=== PATIENT | female | born 2000 | race Hispanic/Latino ===

== ENCOUNTER 2018-07-31 01:35 | Emergency (ER) | payer MEDICAID, OTHER ==
[2018-07-31 02:10] LABS: BILIRUBIN,URINE Negative (NEGATIVE); COLOR,URINE Yellow (YELLOW); GLUCOSE, URINE (UA) Negative (NEGATIVE); KETONES,URINE Negative (NEGATIVE); LEUKOCYTE ESTERASE ,URINE Trace (NEGATIVE); NITRATE,URINE Negative (NEGATIVE); OCCULT BLOOD,URINE Negative (NEGATIVE); PH,URINE 7.5 (5.0-8.0); PROTEIN,URINE Negative (NEGATIVE)
[2018-07-31 02:11] LABS: APPEARANCE,URINE SLIGHTLY CLOUDY (CLEAR)
[2018-07-31 02:12] LABS: HCG,QUAL RESULT NEGATIVE (NEGATIVE)
[2018-07-31 02:24] LABS: AMORPHOUS SEDIMENT,UR Moderate /LPF (None Seen); BACTERIA,URINE Moderate /HPF (None Seen); RBC,URINE 0-1 /HPF (0-1)
[2018-07-31] MEDS ORDERED: ORPHENADRINE CITRATE 30 MG/ML ML ONE (02:57)
== END 2018-07-31 03:11 | disposition home or self-care (01) ==
LOC: EDH 01:35
DX: S46.812A Strain of other muscles, fascia and tendons at shoulder and upper arm level, left arm, initial encounter (principal); S80.01XA Contusion of right knee, initial encounter; S60.221A Contusion of right hand, initial encounter; V33 Occupant of three-wheeled motor vehicle injured in collision with car, pick-up truck or van; Y93.89 Activity, other specified; Y92.410 Unspecified street and highway as the place of occurrence of the external cause; Y99.8 Other external cause status
CPT/HCPCS: 81001; 81025; 96372; 99284; J2360

== ENCOUNTER 2023-05-23 08:54 | Emergency (ER) | payer MEDICAID ==
[~2023-05-23] VITALS: Ht 152.4 cm; Wt 107.5 kg
[2023-05-23 09:15] LABS: BASOPHILS # (AUTO) 0.04 K/uL (0.00-0.20); BASOPHILS % (AUTO) 0.4 % (0.0-5.0); EOSINOPHILS # (AUTO) 0.15 K/uL (0.00-0.70); EOSINOPHILS % (AUTO) 1.7 % (0.0-8.0); HEMATOCRIT 35.7 % (36-48); IMMATURE GRANULOCYTE ABSOLUTE 0.02 K/uL (0-1); LYMPHOCYTES % (AUTO) 22.2 % (21.0-51.0); MEAN CORPUSCULAR HEMOGLOBIN 29.7 pg (27.0-33.0); MEAN CORPUSCULAR HGB CONC 33.9 g/dL (32.0-36.0); MEAN CORPUSCULAR VOLUME 87.5 fL (79-99); MONOCYTES # (AUTO) 0.5 K/uL (0.1-1.0); MONOCYTES % (AUTO) 5.6 % (3.0-13.0); NEUTROPHILS # (AUTO) 6.2 K/uL (1.8-7.7); NEUTROPHILS % (AUTO) 69.9 % (40.0-77.0); PLATELET COUNT (AUTO) 230 K/uL (130-400); RED BLOOD CELL COUNT(AUTO) 4.08 MIL/uL (4.00-5.50); RED CELL DISTRIBUTION WIDTH 12.7 % (11.0-15.5); WHITE BLOOD COUNT (AUTO) 8.9 K/uL (4.8-10.8)
[2023-05-23 09:25] LABS: CREATININE 0.7 mg/dL (0.5-1.0); POTASSIUM 3.6 mmol/L (3.5-5.1)
[2023-05-23] MEDS: ONDANSETRON 4MG INJ IVP ONE (09:39)
[2023-05-23] MEDS: MAG/ALUM/SIMETH 30 ML UDCUP PO ONE (09:39)
[2023-05-23] MEDS: LACTATED RINGERS 1000ML 1,000 ML IV ONE (09:39)
[2023-05-23 09:50] LABS: ALBUMIN 3.4 g/dL (3.5-5.0); BILIRUBIN,TOTAL 0.3 mg/dL (0.2-1.0)
[2023-05-23 11:17] LABS: AMPHET/METH SCREEN,URINE NEGATIVE (NEGATIVE); BARBITURATE SCREEN, URINE NEGATIVE (NEGATIVE); BENZODIAZEPINES SCREEN,URINE NEGATIVE (NEGATIVE); CANNABINOID SCREEN,URINE NEGATIVE (NEGATIVE); COCAINE SCREEN,URINE NEGATIVE (NEGATIVE); OPIATE SCREEN,URINE NEGATIVE (NEGATIVE); PHENCYCLIDINE SCREEN,URINE NEGATIVE (NEGATIVE)
[2023-05-23] MEDS ORDERED: DOXY1TAB3 PO (12:00)
[2023-05-23 12:39] VITALS: BP 129/74; PULSE 74; RESP 16; O2SAT 99
== END 2023-05-23 12:46 | disposition home or self-care (01) ==
LOC: EDH 08:54
DX: O21.9 Vomiting of pregnancy, unspecified (principal); Z3A.16 16 weeks gestation of pregnancy
CPT/HCPCS: 99285; 96374; 96361; 76801; 80053; 80305; 84702; 83690; 85025; 81025; 36415; J2405

== ENCOUNTER 2023-05-27 23:48 | Emergency (ER) | payer MEDICAID ==
[~2023-05-27] VITALS: Ht 157.5 cm; Wt 83.9 kg
[~2023-05-27 23:48] MED LIST: DOXY1TAB3 PO
[2023-05-28 00:15] LABS: APPEARANCE,URINE TURBID (CLEAR); BILIRUBIN,URINE NEGATIVE (NEGATIVE); GLUCOSE, URINE (UA) NEGATIVE (NEGATIVE); KETONES,URINE NEGATIVE (NEGATIVE); LEUKOCYTE ESTERASE ,URINE 500 Leu/uL (NEGATIVE); NITRATE,URINE NEGATIVE (NEGATIVE); OCCULT BLOOD,URINE LARGE (NEGATIVE); PROTEIN,URINE 70 mg/dL (NEGATIVE); UROBILINOGEN,URINE 0.2 mg/dL (0.2-1.0)
[2023-05-28 00:19] LABS: ADD UA MICROSCOPIC YES; COLOR,URINE PINK (YELLOW)
[2023-05-28 00:27] VITALS: BP 112/64; PULSE 68; RESP 16; O2SAT 98
[2023-05-28] MEDS ORDERED: CEPHALEXIN 500 MG CAPSULE PO ONE (00:30)
[2023-05-28 00:34] LABS: BACTERIA,URINE RARE /HPF (None Seen); MUCUS,URINE RARE LPF (None Seen); RBC,URINE TNTC /HPF (0-1); SQUAMOUS EPITHELIAL CELL,UR MOD /HPF (0-2); WBC CLUMP RARE /HPF (0-1); WBC,URINE 26-50 /HPF (0-1)
[2023-05-28] MEDS ORDERED: MACR100 PO (00:36)
[2023-05-28 00:38] LABS: BASOPHILS # (AUTO) 0.04 K/uL (0.00-0.20); BASOPHILS % (AUTO) 0.5 % (0.0-5.0); EOSINOPHILS # (AUTO) 0.16 K/uL (0.00-0.70); EOSINOPHILS % (AUTO) 1.8 % (0.0-8.0); HEMATOCRIT 37.1 % (36-48); IMMATURE GRANULOCYTE ABSOLUTE 0.03 K/uL (0-1); LYMPHOCYTES # (AUTO) 2.4 K/uL (1.0-4.8); LYMPHOCYTES % (AUTO) 26.6 % (21.0-51.0); MEAN CORPUSCULAR HEMOGLOBIN 29.6 pg (27.0-33.0); MEAN CORPUSCULAR VOLUME 87.3 fL (79-99); MONOCYTES # (AUTO) 0.4 K/uL (0.1-1.0); MONOCYTES % (AUTO) 4.9 % (3.0-13.0); NEUTROPHILS # (AUTO) 5.8 K/uL (1.8-7.7); NEUTROPHILS % (AUTO) 65.9 % (40.0-77.0); PLATELET COUNT (AUTO) 258 K/uL (130-400); RED BLOOD CELL COUNT(AUTO) 4.25 MIL/uL (4.00-5.50); RED CELL DISTRIBUTION WIDTH 12.8 % (11.0-15.5); WHITE BLOOD COUNT (AUTO) 8.8 K/uL (4.8-10.8)
[2023-05-28 00:41] LABS: CREATININE 0.6 mg/dL (0.5-1.0); POTASSIUM 3.8 mmol/L (3.5-5.1)
[2023-05-28] MEDS: PHENAZOPYRIDINE HCL 200 MG TABLET PO ONE (00:45)
[2023-05-28] MEDS: NITROFURANTOIN MONOHYD/M-CRYST 100 MG CAPSULE PO ONE (00:45)
[2023-05-28 00:47] LABS: INR 0.96 (0.85-1.15); PROTHROMBIN TIME 11.4 SEC (9.6-11.6)
[2023-05-28 00:49] LABS: PARTIAL THROMBOPLASTIN TIME 26.8 SEC (26.3-35.5)
[2023-05-28 01:07] LABS: ALBUMIN 3.5 g/dL (3.5-5.0); BILIRUBIN,TOTAL 0.2 mg/dL (0.2-1.0); TOTAL PROTEIN, SERUM 7.3 g/dL (6.0-8.3)
== END 2023-05-28 01:07 | disposition home or self-care (01) ==
LOC: EDH 23:48
DX: N39.0 Urinary tract infection, site not specified (principal); R10.2 Pelvic and perineal pain
CPT/HCPCS: 36415; 80053; 81001; 84702; 85025; 85610; 85730; 86900; 86901; 87077; 87088; 87186

== ENCOUNTER 2023-07-21 19:28 | Observation (INO) | payer MEDICAID ==
[~2023-07-21] VITALS: Ht 152.4 cm; Wt 108.9 kg
[~2023-07-21 19:28] MED LIST changes: +MACR100 PO
[2023-07-21 19:29] VITALS: BP 148/93; PULSE 101; RESP 20
[2023-07-21 20:06] LABS: BILIRUBIN,URINE NEGATIVE (NEGATIVE); COLOR,URINE LIGHT-YELLOW (YELLOW); GLUCOSE, URINE (UA) NEGATIVE (NEGATIVE); KETONES,URINE NEGATIVE (NEGATIVE); LEUKOCYTE ESTERASE ,URINE NEGATIVE Leu/uL (NEGATIVE); NITRATE,URINE NEGATIVE (NEGATIVE); OCCULT BLOOD,URINE NEGATIVE (NEGATIVE); PH,URINE 6.5 (5.0-8.0); PROTEIN,URINE NEGATIVE (NEGATIVE); UROBILINOGEN,URINE 0.2 mg/dL (0.2-1.0)
[2023-07-21 20:10] LABS: APPEARANCE,URINE CLEAR (CLEAR)
[2023-07-21 20:11] LABS: ADD UA MICROSCOPIC NO
== END 2023-07-21 20:50 | disposition home or self-care (01) ==
LOC: EDH 19:28 → LDH 19:38
PROVIDERS: ADMIT Obstetrics & Gynecology; ATTEND Obstetrics & Gynecology
DX: O26.892 Other specified pregnancy related conditions, second trimester (principal); R10.9 Unspecified abdominal pain; O99.891 Other specified diseases and conditions complicating pregnancy; M54.9 Dorsalgia, unspecified; Z3A.23 23 weeks gestation of pregnancy
CPT/HCPCS: 81003; G0379; G0378

== ENCOUNTER 2023-08-30 09:39 | Observation (INO) | payer MEDICAID ==
[~2023-08-30] VITALS: Ht 152.4 cm; Wt 108.9 kg
[~2023-08-30 09:39] MED LIST changes: +METO10TA41 PO
[2023-08-30 09:41] VITALS: BP 118/70; PULSE 95; RESP 14
[2023-08-30] MEDS: LACTATED RINGERS 1000ML IV PRN (10:45)
[2023-08-30] MEDS: TERBUTALINE SULFATE VIAL 1MG/ML SQ PRN (11:09)
[2023-08-30 11:23] LABS: APPEARANCE,URINE CLEAR (CLEAR); BILIRUBIN,URINE NEGATIVE (NEGATIVE); COLOR,URINE LIGHT-YELLOW (YELLOW); GLUCOSE, URINE (UA) NEGATIVE (NEGATIVE); KETONES,URINE NEGATIVE (NEGATIVE); LEUKOCYTE ESTERASE ,URINE 25 Leu/uL (NEGATIVE); NITRATE,URINE NEGATIVE (NEGATIVE); OCCULT BLOOD,URINE NEGATIVE (NEGATIVE); PH,URINE 6.5 (5.0-8.0); PROTEIN,URINE NEGATIVE (NEGATIVE); UROBILINOGEN,URINE 0.2 mg/dL (0.2-1.0)
[2023-08-30 11:33] LABS: ADD UA MICROSCOPIC YES
[2023-08-30 11:43] LABS: BACTERIA,URINE RARE /HPF (None Seen); MUCUS,URINE RARE LPF (None Seen); RBC,URINE 0-1 /HPF (0-1); SQUAMOUS EPITHELIAL CELL,UR FEW /HPF (0-2)
== END 2023-08-30 15:29 | disposition home or self-care (01) ==
LOC: EDH 09:39 → LDH 09:53
PROVIDERS: ADMIT Obstetrics & Gynecology; ATTEND Obstetrics & Gynecology
DX: O62.9 Abnormality of forces of labor, unspecified (principal); O36.8130 Decreased fetal movements, third trimester, not applicable or unspecified; Z3A.29 29 weeks gestation of pregnancy
CPT/HCPCS: 96372; 96360; 96361; 81001; G0378 ×6; G0379; J7120; J3105; 96365; 96366

== ENCOUNTER 2023-09-06 01:22 | Observation (INO) | payer MEDICAID ==
[~2023-09-06] VITALS: Ht 152.4 cm; Wt 112.5 kg
[2023-09-06 01:24] VITALS: BP 130/76; PULSE 96; RESP 20
[2023-09-06 01:54] LABS: APPEARANCE,URINE CLOUDY (CLEAR); BILIRUBIN,URINE NEGATIVE (NEGATIVE); COLOR,URINE LIGHT-YELLOW (YELLOW); GLUCOSE, URINE (UA) NEGATIVE (NEGATIVE); KETONES,URINE NEGATIVE (NEGATIVE); LEUKOCYTE ESTERASE ,URINE NEGATIVE Leu/uL (NEGATIVE); NITRATE,URINE NEGATIVE (NEGATIVE); OCCULT BLOOD,URINE NEGATIVE (NEGATIVE); PH,URINE 7.5 (5.0-8.0); PROTEIN,URINE NEGATIVE (NEGATIVE); UROBILINOGEN,URINE 0.2 mg/dL (0.2-1.0)
[2023-09-06 02:15] LABS: ADD UA MICROSCOPIC YES
[2023-09-06 02:17] LABS: BACTERIA,URINE RARE /HPF (None Seen); MUCUS,URINE RARE LPF (None Seen); SQUAMOUS EPITHELIAL CELL,UR FEW /HPF (0-2); WBC,URINE 0-1 /HPF (0-1)
== END 2023-09-06 02:25 | disposition home or self-care (01) ==
LOC: EDH 01:22 → LDH 01:23
PROVIDERS: ADMIT Obstetrics & Gynecology; ATTEND Obstetrics & Gynecology
DX: O62.9 Abnormality of forces of labor, unspecified (principal); Z3A.39 39 weeks gestation of pregnancy
CPT/HCPCS: 81001; G0379; G0378

== ENCOUNTER 2023-09-07 12:46 | Observation (INO) | payer MEDICAID ==
[~2023-09-07] VITALS: Ht 152.4 cm; Wt 101.6 kg
[2023-09-07 13:48] LABS: APPEARANCE,URINE CLEAR (CLEAR); BILIRUBIN,URINE NEGATIVE (NEGATIVE); COLOR,URINE LIGHT-YELLOW (YELLOW); GLUCOSE, URINE (UA) NEGATIVE (NEGATIVE); KETONES,URINE NEGATIVE (NEGATIVE); LEUKOCYTE ESTERASE ,URINE 75 Leu/uL (NEGATIVE); NITRATE,URINE NEGATIVE (NEGATIVE); OCCULT BLOOD,URINE LARGE (NEGATIVE); PROTEIN,URINE 50 mg/dL (NEGATIVE); UROBILINOGEN,URINE 0.2 mg/dL (0.2-1.0)
[2023-09-07 14:00] LABS: ADD UA MICROSCOPIC YES
[2023-09-07 14:03] LABS: BACTERIA,URINE RARE /HPF (None Seen); MUCUS,URINE RARE LPF (None Seen); RBC,URINE TNTC /HPF (0-1); SQUAMOUS EPITHELIAL CELL,UR RARE /HPF (0-2); WBC,URINE 26-50 /HPF (0-1)
[2023-09-07] MEDS: LACTATED RINGERS 1000ML 1,000 ML IV SCH (14:40)
[2023-09-07] MEDS: CEFTRIAXONE 1G VIAL IVPB ONE (14:40)
[2023-09-07] MEDS: PHENAZOPYRIDINE HCL 200 MG TABLET PO SCH (16:09)
[2023-09-07 19:40] VITALS: BP 118/81; PULSE 99; RESP 20
[2023-09-07 21:16] LABS: BASOPHILS # (AUTO) 0.04 K/uL (0.00-0.20); BASOPHILS % (AUTO) 0.4 % (0.0-5.0); EOSINOPHILS # (AUTO) 0.11 K/uL (0.00-0.70); HEMATOCRIT 33.6 % (36-48); IMMATURE GRANULOCYTE ABSOLUTE 0.09 K/uL (0-1); LYMPHOCYTES # (AUTO) 2.3 K/uL (1.0-4.8); LYMPHOCYTES % (AUTO) 20.2 % (21.0-51.0); MEAN CORPUSCULAR HEMOGLOBIN 29.2 pg (27.0-33.0); MEAN CORPUSCULAR HGB CONC 31.8 g/dL (32.0-36.0); MEAN CORPUSCULAR VOLUME 91.6 fL (79-99); MONOCYTES # (AUTO) 0.6 K/uL (0.1-1.0); MONOCYTES % (AUTO) 5.6 % (3.0-13.0); NEUTROPHILS # (AUTO) 8.1 K/uL (1.8-7.7); PLATELET COUNT (AUTO) 234 K/uL (130-400); RED BLOOD CELL COUNT(AUTO) 3.67 MIL/uL (4.00-5.50); WHITE BLOOD COUNT (AUTO) 11.3 K/uL (4.8-10.8)
[2023-09-07 21:26] LABS: CREATININE 0.6 mg/dL (0.5-1.0); POTASSIUM 3.6 mmol/L (3.5-5.1)
[2023-09-07 21:30] LABS: ALBUMIN 2.6 g/dL (3.5-5.0); BILIRUBIN,DIRECT 0.1 mg/dL (0.0-0.3); BILIRUBIN,TOTAL 0.2 mg/dL (0.2-1.0); TOTAL PROTEIN, SERUM 6.1 g/dL (6.0-8.3)
[2023-09-07 23:25] VITALS: BP 103/63; PULSE 95; RESP 20
[2023-09-08 03:26] VITALS: BP 110/73; PULSE 89; RESP 18
[2023-09-08 07:45] VITALS: BP 115/66; PULSE 93; RESP 16
[2023-09-08 11:50] VITALS: BP 100/68; PULSE 98; RESP 18
[2023-09-08] MEDS: ACETAMINOPHEN 325 MG TAB PO PRN (11:51)
[2023-09-08] MEDS: CEFTRIAXONE 1G VIAL IVPB SCH (11:52)
[2023-09-08] MEDS ORDERED: CEFTRIAXONE 1G VIAL IVPB SCH (14:30)
[2023-09-08 16:00] VITALS: BP 115/58; PULSE 97; RESP 18
[2023-09-08 19:04] VITALS: BP 113/65; PULSE 97; RESP 24
[2023-09-08 23:05] VITALS: BP 124/87; PULSE 102; RESP 25
[2023-09-09 04:00] VITALS: BP 98/60; PULSE 103; RESP 25
[2023-09-09 07:00] VITALS: BP 105/67; PULSE 92; RESP 18
[2023-09-09 11:28] VITALS: BP 106/70; PULSE 92; RESP 18
[2023-09-09] MEDS ORDERED: PREN-196 PO (11:53)
== END 2023-09-09 12:45 | disposition home or self-care (01) ==
LOC: EDH 12:46 → LDH 13:14 → WSH 16:18
PROVIDERS: ADMIT Obstetrics & Gynecology; ATTEND Obstetrics & Gynecology
DX: O23.03 Infections of kidney in pregnancy, third trimester (principal); O99.891 Other specified diseases and conditions complicating pregnancy; M54.59 Other low back pain; O26.893 Other specified pregnancy related conditions, third trimester; R35.0 Frequency of micturition; R30.0 Dysuria; R10.30 Lower abdominal pain, unspecified; Z3A.30 30 weeks gestation of pregnancy
CPT/HCPCS: 96361 ×3; 96365; 59025 ×3; 80076; 80048; 85025; 87086; 81001; 36415; 96366 ×2; 76770; G0378 ×48; G0379; J7120 ×7; J0696 ×3; 96360

== ENCOUNTER 2023-10-11 00:38 | Observation (INO) | payer MEDICAID ==
[~2023-10-11] VITALS: Ht 152.4 cm; Wt 114.4 kg
[~2023-10-11 00:38] MED LIST changes: -DOXY1TAB3 PO; -MACR100 PO; -METO10TA41 PO; +PREN-196 PO
[2023-10-11 00:40] VITALS: BP 119/84; PULSE 101; RESP 20
[2023-10-11 01:10] LABS: APPEARANCE,URINE CLEAR (CLEAR); BILIRUBIN,URINE NEGATIVE (NEGATIVE); COLOR,URINE LIGHT-YELLOW (YELLOW); GLUCOSE, URINE (UA) NEGATIVE (NEGATIVE); KETONES,URINE NEGATIVE (NEGATIVE); LEUKOCYTE ESTERASE ,URINE NEGATIVE Leu/uL (NEGATIVE); NITRATE,URINE NEGATIVE (NEGATIVE); OCCULT BLOOD,URINE NEGATIVE (NEGATIVE); PROTEIN,URINE NEGATIVE (NEGATIVE); UROBILINOGEN,URINE 0.2 mg/dL (0.2-1.0)
[2023-10-11 01:12] LABS: ADD UA MICROSCOPIC NO
== END 2023-10-11 01:59 | disposition home or self-care (01) ==
LOC: EDH 00:38 → LDH 00:39
PROVIDERS: ADMIT Obstetrics & Gynecology; ATTEND Obstetrics & Gynecology
DX: O26.893 Other specified pregnancy related conditions, third trimester (principal); R10.32 Left lower quadrant pain; Z3A.35 35 weeks gestation of pregnancy
CPT/HCPCS: 59025; 81003; G0378; G0379

== ENCOUNTER 2023-11-08 17:33 | Inpatient (IN) | payer MEDICAID ==
[~2023-11-08] VITALS: Ht 152.4 cm; Wt 117.0 kg
[2023-11-08] MEDS ORDERED: LACTATED RINGERS 500 ML 500 ML IV PRN (18:00)
[2023-11-08] MEDS ORDERED: OXYTOCIN-LR 30 UNITS/500ML 500 ML IV SCH (18:00)
[2023-11-08] MEDS ORDERED: ePHEDrine SULFate 50 MG/ML AMPULE IVP PRN (18:00)
[2023-11-08] MEDS ORDERED: NALoxone HCL 0.4 MG/1 ML ML IV PRN (18:00)
[2023-11-08 18:26] LABS: ADD UA MICROSCOPIC YES; APPEARANCE,URINE CLOUDY (CLEAR); BILIRUBIN,URINE NEGATIVE (NEGATIVE); COLOR,URINE YELLOW (YELLOW); GLUCOSE, URINE (UA) NEGATIVE (NEGATIVE); KETONES,URINE NEGATIVE (NEGATIVE); LEUKOCYTE ESTERASE ,URINE NEGATIVE Leu/uL (NEGATIVE); NITRATE,URINE NEGATIVE (NEGATIVE); OCCULT BLOOD,URINE NEGATIVE (NEGATIVE); PROTEIN,URINE 70 mg/dL (NEGATIVE); UROBILINOGEN,URINE 0.2 mg/dL (0.2-1.0)
[2023-11-08] MEDS: AMPICILLIN 2GM+NS 100ML 100 ML IV SCH (18:30)
[2023-11-08] MEDS: LACTATED RINGERS 1000ML 1,000 ML IV PRN (18:31)
[2023-11-08 18:33] LABS: HEMATOCRIT 35.6 % (36-48); MEAN CORPUSCULAR HEMOGLOBIN 27.8 pg (27.0-33.0); MEAN CORPUSCULAR HGB CONC 32.3 g/dL (32.0-36.0); MEAN CORPUSCULAR VOLUME 86.2 fL (79-99); RED BLOOD CELL COUNT(AUTO) 4.13 MIL/uL (4.00-5.50); RED CELL DISTRIBUTION WIDTH 13.5 % (11.0-15.5); WHITE BLOOD COUNT (AUTO) 8.3 K/uL (4.8-10.8)
[2023-11-08 18:46] LABS: BACTERIA,URINE RARE /HPF (None Seen); MUCUS,URINE RARE LPF (None Seen); SQUAMOUS EPITHELIAL CELL,UR MOD /HPF (0-2)
[2023-11-08 19:20] LABS: HIV 1&2 ANTIBODY Non-Reactive (Negative); HIV-1 p24 Antigen Non-Reactive (Negative)
[2023-11-08] MEDS: DINOPROSTONE 10 MG VAGINAL SUPP VG ONE (19:23)
[2023-11-08] MEDS: AMPICILLIN 1GM+NS 50ML 50 ML IV SCH (22:35)
[2023-11-09] MEDS: PROMETHAZINE HCL 25 MG/ML 1ML AMPULE IM PRN (03:57)
[2023-11-09] MEDS: MEPERIDINE-PF 50 MG/ML SYG IVP PRN (04:02)
[2023-11-09] MEDS: OXYTOCIN-LR 30 UNITS/500ML 500 ML IV SCH (08:02)
[2023-11-09 13:50] LABS: RAPID PLASMA REAGIN NONREACTIVE (NONREACTIVE)
[2023-11-09] MEDS: MISOPROSTOL 25 MCG TAB VG PRN (18:37)
[2023-11-10] MEDS ORDERED: MISOPROSTOL 200 MCG TABLET ONE (15:16)
[2023-11-10] MEDS ORDERED: FAMOTIDINE 20MG VIAL IV PRN (16:00)
[2023-11-10] MEDS ORDERED: metoCLOPRAmide 10 MG/2 ML VIAL IVP PRN (16:00)
[2023-11-10] MEDS ORDERED: ceFAZolin SODIUM 1 GM VIAL IVPB PRN (16:00)
[2023-11-10] MEDS ORDERED: CALDOLOR 800MG+NS 250ML 250 ML IV PRN (16:00)
[2023-11-10] MEDS ORDERED: CITRIC ACID/SODIUM CITRATE 30 ML UDCUP PO PRN (16:00)
[2023-11-10] MEDS ORDERED: morPHINE PF 100MG/10ML AMP IV ONE (16:26)
[2023-11-10] MEDS ORDERED: ONDANSETRON 4MG INJ ONE (16:26)
[2023-11-10] MEDS ORDERED: FENTanyl CITRate PF 50 MCG/1 ML 2ML VIAL ONE (16:26)
[2023-11-10] MEDS ORDERED: ePHEDrine SULFate 50 MG/ML AMPULE ONE (16:26)
[2023-11-10] MEDS ORDERED: OXYTOCIN 10 USP UNITS/ML ONE (16:47)
[2023-11-10] MEDS ORDERED: MIDAZOLAM HCL 1 MG/ML 2ML VIAL ONE (17:11)
[2023-11-10] MEDS ORDERED: MEPERIDINE-PF 75 MG/ML SYG IM PRN (18:00)
[2023-11-10] MEDS ORDERED: 0.9%NACL 10ML VIAL IVP PRN (18:00)
[2023-11-10] MEDS ORDERED: PROMETHAZINE HCL 25 MG/ML 1ML AMPULE IM PRN (18:00)
[2023-11-10] MEDS ORDERED: OXYTOCIN-LR 30 UNITS/500ML 500 ML IV PRN (18:00)
[2023-11-10 19:45] VITALS: BP 112/59; PULSE 77; RESP 20; TEMP 97.6
[2023-11-10] MEDS: DEXTROSE 5 %-0.45 % NACL 1,000 ML IV PRN (21:37)
[2023-11-11] VITALS (7 sets, daily range): BP systolic 93–132; BP diastolic 58–85; PULSE 84–104; RESP 18–20; TEMP 97.7–98.4
[2023-11-11] MEDS ORDERED: acetaMINOPHEN 500 MG TABLET PO PRN (01:30)
[2023-11-11] MEDS ORDERED: DiphenhydrAMINE HCL 25 MG CAPSULE PO PRN (01:30)
[2023-11-11] MEDS ORDERED: LANOLIN 30GM OINTMENT TP PRN (01:30)
[2023-11-11] MEDS: CALDOLOR 800MG+NS 250ML 250 ML IV SCH (01:49)
[2023-11-11 08:13] LABS: MEAN CORPUSCULAR HEMOGLOBIN 28.4 pg (27.0-33.0); MEAN CORPUSCULAR HGB CONC 32.3 g/dL (32.0-36.0); MEAN CORPUSCULAR VOLUME 87.7 fL (79-99); RED BLOOD CELL COUNT(AUTO) 3.42 MIL/uL (4.00-5.50); RED CELL DISTRIBUTION WIDTH 13.7 % (11.0-15.5); WHITE BLOOD COUNT (AUTO) 6.9 K/uL (4.8-10.8)
[2023-11-11] MEDS: doCUSate SODIUM 100 MG CAP PO SCH (08:38)
[2023-11-11] MEDS: SIMETHICONE 80 MG TAB.CHEW PO PRN (08:38)
[2023-11-11] MEDS: acetaMINOPHEN WITH coDEINE 1 TAB TAB PO PRN (08:55)
[2023-11-11] MEDS ORDERED: BisaCODYL 10 MG SUPP.RECT RC PRN (09:00)
[2023-11-11] MEDS: IBUPROFEN 800 MG TAB PO SCH (10:00)
[2023-11-11] MEDS: IBUPROFEN 800 MG TAB ONE (10:01)
[2023-11-11] MEDS: MEASLES/MUMPS/RUBELLA VACCINE, LIVE 0.5 ML/VIAL SQ PRN (20:58)
[2023-11-12] VITALS (8 sets, daily range): BP systolic 100–147; BP diastolic 34–82; PULSE 107–124; RESP 17–20; TEMP 96.6–101.2
[2023-11-12] MEDS: HYDROcodone/APAP 5/325 1 TAB TABLET PO PRN (00:34)
[2023-11-12 08:32] LABS: BASOPHILS # (AUTO) 0.01 K/uL (0.00-0.20); BASOPHILS % (AUTO) 0.1 % (0.0-5.0); EOSINOPHILS # (AUTO) 0.04 K/uL (0.00-0.70); EOSINOPHILS % (AUTO) 0.4 % (0.0-8.0); HEMATOCRIT 33.3 % (36-48); IMMATURE GRANULOCYTE ABSOLUTE 0.03 K/uL (0-1); LYMPHOCYTES # (AUTO) 1.5 K/uL (1.0-4.8); LYMPHOCYTES % (AUTO) 14.9 % (21.0-51.0); MEAN CORPUSCULAR HEMOGLOBIN 28.5 pg (27.0-33.0); MEAN CORPUSCULAR HGB CONC 32.1 g/dL (32.0-36.0); MEAN CORPUSCULAR VOLUME 88.6 fL (79-99); MONOCYTES # (AUTO) 0.6 K/uL (0.1-1.0); MONOCYTES % (AUTO) 5.4 % (3.0-13.0); NEUTROPHILS % (AUTO) 78.9 % (40.0-77.0); PLATELET COUNT (AUTO) 192 K/uL (130-400); RED BLOOD CELL COUNT(AUTO) 3.76 MIL/uL (4.00-5.50); RED CELL DISTRIBUTION WIDTH 14.2 % (11.0-15.5); WHITE BLOOD COUNT (AUTO) 10.1 K/uL (4.8-10.8)
[2023-11-12] MEDS: LACTATED RINGERS 1000ML 1,000 ML IV SCH (08:40)
[2023-11-12] MEDS: ceFAZolin SODIUM 2 GM VIAL IVPB SCH (09:14)
[2023-11-12 09:15] LABS: CREATININE 0.7 mg/dL (0.5-1.0); POTASSIUM 3.9 mmol/L (3.5-5.1)
[2023-11-12 09:21] LABS: ALBUMIN 2.3 g/dL (3.5-5.0); BILIRUBIN,TOTAL 0.2 mg/dL (0.2-1.0); TOTAL PROTEIN, SERUM 6.3 g/dL (6.0-8.3)
[2023-11-13 04:13] VITALS: BP 126/66; PULSE 116; RESP 18; TEMP 99.2
[2023-11-13 07:50] VITALS: BP 122/71; PULSE 102; RESP 20; TEMP 97.5
[2023-11-13 12:09] VITALS: BP 115/62; PULSE 92; RESP 17; TEMP 97.9
[2023-11-13 15:34] VITALS: BP 128/71; PULSE 110; RESP 18; TEMP 98.2
[2023-11-13 17:30] VITALS: PULSE 100
== END 2023-11-13 18:30 | disposition home or self-care (01) | DRG 540 ==
LOC: LDH 17:33 → WSH 11-10 19:45
PROVIDERS: ADMIT Obstetrics & Gynecology; ATTEND Obstetrics & Gynecology
PROC: 10D00Z1 Extraction of Products of Conception, Low, Open Approach (ICD-10-PCS; principal; 2023-11-10 16:20)
DX: O61.8 Other failed induction of labor (principal); O99.214 Obesity complicating childbirth; E66.01 Morbid (severe) obesity due to excess calories; O48.0 Post-term pregnancy; O99.824 Streptococcus B carrier state complicating childbirth; O62.0 Primary inadequate contractions; N83.8 Other noninflammatory disorders of ovary, fallopian tube and broad ligament; Z3A.40 40 weeks gestation of pregnancy; Z3A.00 Weeks of gestation of pregnancy not specified; O34.83 Maternal care for other abnormalities of pelvic organs, third trimester; Z37.0 Single live birth
CPT/HCPCS: 36415; 59510; 76805; 80053; 81001; 83605; 85025; 85027; 86592; 86701; 86850; 86900; 86901; 87340; 87390; 90707; A4314; G0378; J0290; J0690; J1741; J2175; J2250; J2274; J2405; J2550; J2590; J2795; J3010; J3490; J7120; A4248; A4649; C1765